=== PATIENT | male | born 1930 | race Caucasian/White ===

== ENCOUNTER 2016-12-28 10:49 | Observation (INO) | payer OTHER ==
[2016-12-28] MEDS ORDERED: ceFAZolin 2 GM/DEXTROSE 100 ML IV ONE (10:57)
[2016-12-28] MEDS ORDERED: DIAZEPAM 5 MG TAB PO ONE (10:57)
[2016-12-28] MEDS ORDERED: NS 1,000 ML IV ONE (10:57)
[2016-12-28] MEDS ORDERED: diphenhydrAMINE 25 MG CAP PO ONE (10:57)
[2016-12-28] MEDS ORDERED: BACITRACIN IRRIGATION/NS 50,000 UNITS/1,000 ML BTL IRR ONE (10:57)
--- NOTE | 2016-12-28 11:09 | PDPROPOC ---
Sedation Plan of Care Sedation Plan of Care: vital signs stable, mental status noted, patient educated of risks, benefits, alternatives, patient can tolerate sedation ASA Classification: ASA 2 Planned drugs: fentanyl, midazolam Mallampati Score: Class 2 Mallampati Reference Image: Patient passed 3-3-2 rule?: Yes
--- NOTE | 2016-12-28 11:09 | PDHPUP ---
History & Physical Update H&P update statement: This history and physical update is based on an assessment of the patient which was completed after admission or registration (within 24 hours), but prior to the surgery/procedure. H&P update: H&P reviewed & patient examined, no change in patient's condition since H&P completed
--- NOTE | 2016-12-28 11:17 | CPEKG ---
Heart Rate: 84 RR Interval: 714 P-R Interval: 200 QRSD Interval: 124 QT Interval: 404 QTC Interval: 478 P [place]: 48 QRS [place]: 129 T Wave [place]: 38 EKG Severity - ABNORMAL ECG - EKG Impression: SINUS RHYTHM EKG Impression: RIGHT BUNDLE BRANCH BLOCK EKG Impression: Query right ventricular hypertrophy EKG Impression: first-degree AV block Electronically Signed By: Kobe Mcknight 28-Dec-2016 11:23:59
[2016-12-28 11:34] LABS: % IMMATURE GRANULYOCYTES 0.3 % (0.0-1.1); ABSOLUTE IMMATURE GRANULOCYTES 0.02 10^3/uL (0.00-0.10); ADD DIFF? NO; ADD MORPH? NO; ADD SCAN? NO; ATYPICAL LYMPHOCYTE FLAG 20 (0-99); FRAGMENT RBC FLAG 0 (0-99); HEMATOCRIT 42.3 % (40.0-51.0); HEMOGLOBIN 13.3 g/dL (13.7-17.5); LEFT SHIFT FLG 0 (0-99); LIPEMIA HEMOLYSIS FLAG 80 (0-99); MEAN CELL HEMOGLOBIN 23.3 pg (27.9-34.1); MEAN CELL HEMOGLOBIN CONCENTR. 31.4 g/dL (32.4-36.7); MEAN CELL VOLUME 74.2 fL (81.5-99.8); MEAN PLATELET VOLUME 8.5 fL (8.7-11.7); PLATELET CLUMPS FLAG 0 (0-99); PLATELET COUNT 204 10^3/uL (150-400); RED CELL DISTRIBUTION WIDTH 16.5 % (11.5-15.2)
[2016-12-28] MEDS ORDERED: fentaNYL 100 MCG/2 ML INJ ONE (11:44)
[2016-12-28] MEDS ORDERED: LIDOCAINE 1% 300 MG/30 ML SDV ONE (11:44)
[2016-12-28] MEDS ORDERED: BUPIVACAINE 0.5% 30 ML SDV ONE (11:44)
[2016-12-28] MEDS ORDERED: MIDAZOLAM 2 MG/2 ML VIAL ONE (11:44)
[2016-12-28 11:50] LABS: INR 1.16 (0.83-1.16); PROTIME(PATIENT) 14.8 SEC (12.0-15.0)
[2016-12-28 11:57] LABS: ANION GAP 13 mEq/L (8-16); CALCIUM 9.2 mg/dL (8.5-10.4); CARBON DIOXIDE 24 mEq/l (22-31); CHLORIDE 103 mEq/L (97-110); CREATININE 1.2 mg/dL (0.7-1.3); GLOMERULAR FILTRATION RATE 57; GLUCOSE 117 mg/dL (70-100); POTASSIUM 4.3 mEq/L (3.5-5.2); SODIUM 140 mEq/L (134-144)
[2016-12-28] MEDS ORDERED: IOPAMIDOL (ISOVUE-300) 100 ML BTL ONE (12:04)
[2016-12-28] MEDS ORDERED: HYDROCODONE/APAP 5/325 TAB PO PRN (13:08)
--- NOTE | 2016-12-28 13:08 | EPPROC ---
Electrophysiology Procedure Note: PROCEDURE PERFORMED: 1. Implantation of an A/V Pacemaker 2. Subclavian vein angiography 3. Fluoroscopy INDICATION: Syncope Trifascicular block PROCEDURE NOTE: Patient presented to the cardiac catheterization laboratory in a fasting, post absorptive state . EP RN administered sedation. The left infraclavicular area was prepped and draped in the usual sterile fashion. Lidocaine plus bupivacaine was used for local anesthesia. Left subclavian venography was performed by injection of iodinated contrast into the left antecubital vein. This was done to assure patency of the vein and also to assess for any anatomical aberrations. Using a combination of blunt and sharp dissection and electrocautery, the dissection was carried down to the prepectoral fascia. A pocket was made in this anatomical plane. All bleeding was controlled with electrocautery. The pocket was packed with gauze soaked in antibiotic solution. Fluoroscopy was utilized during the entire procedure for venous access and placement of the leads. Using a direct stick technique the left extrathoracic axillary vein was accessed with 2 sticks using the modified Seldinger technique. Placement of the guidewires into the venous system was confirmed by low-pressure blood return and also by visualizing the guidewires advancing into the inferior vena cava. A purse string suture was applied around the guidewires. Two #7 [place] sheaths were advanced under fluoroscopic guidance over the guidewire. An active fixation ventricular lead was advanced into the right ventricular apex and screwed in place. CS was large, post RV lead placement, RV placement was confirmed with BULGARIAN view. An active fixation atrial lead was advanced into the right atrial appendage and screwed in place. The peel away sheaths were removed. Pacing thresholds, sensing parameters and lead impedances were measured. There was no diaphragmatic stimulation at maximum output. The leads were sutured to the prepectoral fascia with 3 nonabsorbable sutures each. The pocket was again inspected for any bleeding. The leads were attached to the pacemaker securely. The pacemaker was inserted into the pocket and secured in place with a nonabsorbable suture. Fluoroscopy was performed in VICTOR and BULGARIAN planes to verify right-sided placement of the leads. Also fluoroscopy of the pacemaker pocket was performed. The pacemaker pocket was closed in 3 layers with absorbable monocryl sutures and senait. Appropriate dressing was applied. The patient left the cardiac catheterization laboratory in stable condition. Serial Numbers: 1. Device: SJM Assurity MRI [id number] 2. Atrial Lead: SJM 8TC 45 SN [id number] 3. Ventricular Lead: SJ 8TC 52 SN [id number] Stimulation Thresholds & Impedance Measurements: 1. Atrial Lead P 4.3 mV 556 ohm 1.6 V 0.5 ms (0.75 V 0.5 ms through device 2. Ventricular Lead R 4.3 mV 874 ohm 0.3 V 0.5 ms Cristian Pacing Parameters 1. Pacing mode: DDD 2. Lower rate: 60ppm Patient Problems: Problems Problem Status Onset Trifascicular bundle branch block Acute Syncope Acute
--- NOTE | 2016-12-28 14:03 | CPEKG ---
Heart Rate: 75 RR Interval: 800 P-R Interval: 216 QRSD Interval: 124 QT Interval: 440 QTC Interval: 492 P [place]: 68 QRS [place]: 129 T Wave [place]: 39 EKG Severity - ABNORMAL ECG - EKG Impression: SINUS RHYTHM EKG Impression: RIGHT BUNDLE BRANCH BLOCK Electronically Signed By: Kobe Mcknight 28-Dec-2016 14:12:24
[2016-12-28] MEDS ORDERED: ATORVASTATIN CALCIUM 10 MG TAB PO SCH (21:00)
[2016-12-29 04:23] LABS: % IMMATURE GRANULYOCYTES 0.4 % (0.0-1.1); ABSOLUTE IMMATURE GRANULOCYTES 0.03 10^3/uL (0.00-0.10); ADD DIFF? NO; ADD MORPH? NO; ADD SCAN? NO; ATYPICAL LYMPHOCYTE FLAG 10 (0-99); FRAGMENT RBC FLAG 0 (0-99); HEMATOCRIT 35.9 % (40.0-51.0); HEMOGLOBIN 11.2 g/dL (13.7-17.5); LEFT SHIFT FLG 0 (0-99); LIPEMIA HEMOLYSIS FLAG 80 (0-99); MEAN CELL HEMOGLOBIN 23.4 pg (27.9-34.1); MEAN CELL HEMOGLOBIN CONCENTR. 31.2 g/dL (32.4-36.7); MEAN CELL VOLUME 74.9 fL (81.5-99.8); MEAN PLATELET VOLUME 9.3 fL (8.7-11.7); PLATELET CLUMPS FLAG 10 (0-99); PLATELET COUNT 169 10^3/uL (150-400); RED BLOOD CELL COUNT 4.79 10^6/uL (4.40-6.38); RED CELL DISTRIBUTION WIDTH 16.3 % (11.5-15.2)
[2016-12-29 04:41] LABS: ANION GAP 8 mEq/L (8-16); CALCIUM 8.7 mg/dL (8.5-10.4); CARBON DIOXIDE 23 mEq/l (22-31); CHLORIDE 106 mEq/L (97-110); CREATININE 1.2 mg/dL (0.7-1.3); GLOMERULAR FILTRATION RATE 57; GLUCOSE 104 mg/dL (70-100); POTASSIUM 4.6 mEq/L (3.5-5.2); SODIUM 137 mEq/L (134-144)
[2016-12-29] MEDS ORDERED: LISINOPRIL/HCTZ 20/12.5MG 1 EA TAB PO SCH (09:00)
[2016-12-29] MEDS ORDERED: MULTIVITAMINS 1 EACH TAB PO SCH (09:00)
[2016-12-29] MEDS ORDERED: OMEGA-3 FATTY ACIDS 1,000 MG CAP PO SCH (09:00)
[2016-12-29] MEDS ORDERED: ASPIRIN 81 MG CHEWABLE TAB PO SCH (09:00)
--- NOTE | 2016-12-29 09:10 | CPEKG ---
Heart Rate: 80 RR Interval: 750 P-R Interval: 236 QRSD Interval: 124 QT Interval: 404 QTC Interval: 466 P [place]: 67 QRS [place]: 120 T Wave [place]: 47 EKG Severity - ABNORMAL ECG - EKG Impression: SINUS RHYTHM EKG Impression: FIRST DEGREE AV BLOCK EKG Impression: RBBB AND LPFB Electronically Signed By: Eliseo Salguero 29-Dec-2016 10:52:04
--- NOTE | 2016-12-29 11:41 | ASMTCMCOM ---
CM Note CM Note Notes: Chart reviewed. OT note pending, Patient has impaired ROM to right arm and PPM restrictions to left arm. He is to go home to son's home upon discharge. OT recommended to be done during transition of patient from hospital to son's to [place]. Spoke with [id number] who is to call [facility] to arrange for home visits form OT at their home. Patient to dc to son's home when medically stable. CM to follow as needs arise. Date Signed: 12/29/2016 11:40 AM Electronically Signed By:Pippa Macias RN
[2016-12-29 11:59] VITALS: BP 133/60; PULSE 73; RESP 12; TEMP 98.5; O2SAT 93
--- NOTE | 2016-12-29 15:48 | ASDISCHSUM ---
Discharge Information Plan Status:Home with No Needs Medically Cleared to Leave:12/29/2016 Discharge Date:12/29/2016 03:32 PM CM D/C Disposition:Home, Routine, Self-Care ADT D/C Disposition:Home, Routine, Self-Care Projected Discharge Date:12/29/2016 03:32 PM Transportation at D/C:Family Discharge Delay Reason: Follow-Up Date:12/29/2016 03:32 PM Discharge Slot: Final Diagnosis: Placement Information Patient Contact Information Contact Name:GABRIEL Relationship:Sven Address: Work Phone: City: [facility] Phone: State/[place] Code: Email: Financial Information Financial Class:Medicare Advantage Plans Primary Plan Desc:[employer] PPO MEDICARE Primary Plan Number:[id number] Secondary Plan Desc: Secondary Plan Number: Assessment Information [facility] CM Progress Note CM Note CM Note Notes: Chart reviewed. OT note pending, Patient has impaired ROM to right arm and PPM restrictions to left arm. He is to go home to son's home upon discharge. OT recommended to be done during transition of patient from hospital to son's to [place]. Spoke with [id number] who is to call Chip to arrange for home visits form OT at their home. Patient to dc to son's home when medically stable. CM to follow as needs arise. Date Signed: 12/29/2016 11:40 AM Electronically Signed By:Pippa Macias RN Intervention Information Intervention Type:*DIANE-Signed Date of Service:12/29/2016 10:11 AM Patient Type:Observation Staff Member:Emili Negro Hours: Discipline: Severity: Comment:
--- NOTE | 2016-12-30 03:57 | GDS ---
[f rep st] DISCHARGE SUMMARY ADMITTING DIAGNOSES: 1. Syncope. 2. Trifascicular block. 3. Hypertension. 4. Hyperlipidemia. DISCHARGE DIAGNOSES: 1. Syncope. 2. Trifascicular block. 3. Post dual-chamber pacemaker implant. 4. Hypertension. 5. Hyperlipidemia. BRIEF HISTORY: He is a patient of Dr. Gna'bree with a history of syncope with trifascicular block on EKG. He also has a history of moderate MR on recent echocardiogram and nonsustained supraventricular tachycardia was also seen on monitor. HOSPITAL COURSE: Dr. Salguero implanted a [place] ([facility]) Assurity dual-chamber pacemaker that is MRI compatible. Mode is programmed DDD with a base rate of 60 beats per minute. Right atrial capture threshold is 0.5 V at 0.5 milliseconds. P waves are 2.4 mV and RA lead impedance is 480 ohms. Ventricular capture threshold is 0.375 at 0.5 milliseconds. R-waves are 4.8 mV and impedance is 750 ohms. Patient did well overnight; however, his oxygen saturation did drop to 79% at one time. He denies any shortness of breath, chest pain, pressure tightness, or any pain at his pacemaker site. TESTING DONE: Telemetry shows mostly sinus rhythm with PVCs and occasional ventricular pacing. Chest x-ray demonstrates no pneumothorax. There is again noted basilar atelectasis with possible mild fluid overload. LABORATORY DATA: WBC is 7.7, hemoglobin 11.2, hematocrit 35.9, platelets 164, 000. Sodium is 137, potassium 4.6, chloride 106, bicarb 33, BUN 24, creatinine 1.2. Glucose 104. PHYSICAL EXAMINATION: VITAL SIGNS: Blood pressure is 150/61, pulse is 68, respirations 16, temperature is 36.8, O2 saturation on room air is 93%. GENERAL : He is alert and oriented, sitting up in his chair eating breakfast, in no acute distress. CARDIAC: Regular rate, rhythm with a 2/3 musical systolic murmur at the left sternal border. LUNGS: Clear to auscultation except for bilateral fine crackles in bases. ABDOMEN: Soft and nontender. Pacemaker site has gauze dressing with Opsite without any blood and is dry and intact. DISCHARGE INSTRUCTIONS: Post pacemaker implant instructions were reviewed with patient, and he was also given written instructions. He was given an incentive spirometer to use every 3 hours for the next 3-4 days and as needed. He was seen by Occupational Therapy due to limited ROM chronically of right arm and now post pacemaker implant arm restrictions of left arm. His daughter in law will arrange continuing OT with [facility]. He is to call his primary care physician whose name he cannot recall at this time. It is also not in our records because he did change doctors. He will notify them about getting a nocturnal O2 saturation test. This was also reviewed with his daughter in law. DISCHARGE MEDICATIONS: Please see discharge medication reconciliation. FOLLOWUP: He has a followup for pacemaker check and a wound check on January 04 at 11:30 at [facility]. He has a followup with Dr. Salguero on February 04 at 10:45. /[id number]/MODL MTDD
== END 2016-12-29 15:32 | disposition home or self-care (01) ==
LOC: FCATH 10:49 → F2W 13:39
PROVIDERS: ADMIT Internal Medicine Cardiovascular Disease; ATTEND Internal Medicine Cardiovascular Disease
PROC: 0JH606Z Insertion of Pacemaker, Dual Chamber into Chest Subcutaneous Tissue and Fascia, Open Approach (ICD-10-PCS; principal; 2016-12-28)
PROC: 02HK3JZ Insertion of Pacemaker Lead into Right Ventricle, Percutaneous Approach (ICD-10-PCS; principal; 2016-12-28)
PROC: 02H63JZ Insertion of Pacemaker Lead into Right Atrium, Percutaneous Approach (ICD-10-PCS; principal; 2016-12-28)
DX: R55 Syncope and collapse (principal); I45.3 Trifascicular block; I47.1 Supraventricular tachycardia; I34.0 Nonrheumatic mitral (valve) insufficiency; I10 Essential (primary) hypertension; E78.5 Hyperlipidemia, unspecified
CPT/HCPCS: 33208; 71010; 71020; 93005; 97166; C1785; C1898; G0378; J0690; J2250; J3010; Q9967